=== PATIENT | female | born 1930 | race Caucasian/White ===

== ENCOUNTER → 2016-08-22 | Outpatient (CLI) | payer OTHER, BC ==
[~2016-08-22] MED LIST: ACET-1256 PO; ALPR0.25 PO; AMOX250C3 PO; ASPI81TA28 PO; B-COTAB18 PO; CALC-393 PO; CALCTAB5 PO; CHOL1000 PO; CIPR-255 PO; CLON0.1T12 PO; CYAN100T PO; FISHOIL PO; MULT-190 PO; MULT-580 PO; MULT60CA PO; OMEG10007 PO; PHEN-876 PO; POTA99TA PO; SENN1TAB65 PO; TRIA37.5 PO; VERA180T15 PO; VERA1TAB53 PO; XNX25 PO; ZNTT/150 PO
[2016-08-22 18:04] LABS: URINE APPEARANCE CLEAR (CLEAR); URINE BILIRUBIN NEG (NEG); URINE COLOR DK YELLOW; URINE EPITHELIAL CELL AUTO 20-30 /lpf (0-5); URINE NITRITE NEG (NEG); URINE SPECIFIC GRAVITY 1.016 (1.000-1.030); UROBILINOGEN NEG (NEG); ZZUR CULT IF INDIC CLEAN CATCH NO
[2016-08-22 18:07] LABS: BLOOD UREA NITROGEN 15 mg/dl (7-18); BUN/CREATININE RATIO 20.4 (10-20); CALCIUM 9.2 mg/dl (8.5-10.1); CARBON DIOXIDE 26 mmol/L (21-32); CHLORIDE 92 mmol/L (98-107); CREATININE 0.72 mg/dl (0.60-1.20); GLUCOSE 103 mg/dl (70-99); POTASSIUM 3.7 mmol/L (3.5-5.1); SODIUM 132 mmol/L (136-145)
[2016-08-22 18:20] LABS: MANUAL MICROSCOPIC REQUIRED? NO; REVIEW REQ? NO
== END | disposition home or self-care (01) ==
LOC: C.LABPBG 14:32
PROVIDERS: ATTEND Internal Medicine Geriatric Medicine
DX: I10 Essential (primary) hypertension (principal); R39.9 Unspecified symptoms and signs involving the genitourinary system

== ENCOUNTER → 2016-10-06 | Outpatient (CLI) | payer OTHER, BC ==
[2016-10-06 12:08] LABS: URINE APPEARANCE CLEAR (CLEAR); URINE BILIRUBIN NEG (NEG); URINE COLOR YELLOW; URINE EPITHELIAL CELL AUTO 0-5 /lpf (0-5); URINE NITRITE NEG (NEG); URINE SPECIFIC GRAVITY 1.006 (1.000-1.030); UROBILINOGEN NEG (NEG)
[2016-10-06 12:40] LABS: MANUAL MICROSCOPIC REQUIRED? NO; REVIEW REQ? NO; SULFASALICYLIC ACID POS (NEG)
== END | disposition home or self-care (01) ==
LOC: C.LABPBG 09:27
PROVIDERS: ATTEND Internal Medicine Geriatric Medicine
DX: R39.9 Unspecified symptoms and signs involving the genitourinary system (principal)

== ENCOUNTER 2016-10-08 10:57 | Emergency (ER) | payer OTHER, BC ==
[~2016-10-08] VITALS: Ht 162.6 cm; Wt 75.5 kg
[~2016-10-08 10:57] MED LIST changes: -ALPR0.25 PO; -AMOX250C3 PO; -CALC-393 PO; -CIPR-255 PO; -CLON0.1T12 PO; -MULT-190 PO; -OMEG10007 PO; -PHEN-876 PO; -POTA99TA PO; -SENN1TAB65 PO; -VERA1TAB53 PO; -ZNTT/150 PO
[2016-10-08 11:04] VITALS: TEMP 36.7; Ht 162.6 cm; Wt 75.5 kg
[2016-10-08] MEDS ORDERED: VERA1TAB53 PO (11:36)
[2016-10-08] MEDS ORDERED: CALC-393 PO (11:36)
[2016-10-08] MEDS ORDERED: ALPR0.25 PO (11:36)
[2016-10-08] MEDS ORDERED: POTA99TA PO (11:36)
[2016-10-08] MEDS ORDERED: AMOX250C3 PO (11:36)
[2016-10-08] MEDS ORDERED: OMEG10007 PO (11:36)
[2016-10-08 11:57] LABS: URINE APPEARANCE CLEAR (CLEAR); URINE BILIRUBIN NEG (NEG); URINE COLOR YELLOW; URINE NITRITE NEG (NEG); URINE PH >= 9.0 (4.5-7.5); URINE SPECIFIC GRAVITY 1.011 (1.000-1.030); UROBILINOGEN NEG (NEG); ZZUR CULT IF INDIC CLEAN CATCH NO
[2016-10-08 11:58] LABS: MANUAL MICROSCOPIC REQUIRED? NO; REVIEW REQ? NO
[2016-10-08 12:00] LABS: SULFASALICYLIC ACID POS (NEG)
--- NOTE | 2016-10-08 12:19 | EMERGENCY ROOM VISIT NOTE ---
History Report prepared by Delmy: Garrett Brambila Under the Supervision of: Dr. Jeramie Alejandre M.D. First contact with patient: 11:57 Chief Complaint: URINARY SYMPTOMS Stated Complaint: BLADDER Nursing Triage Summary: Pt c/o trouble urinating x 1 week. History of Present Illness The patient is a 86 year old female who presents to the Emergency Room with complaints of a urinary infection that began 7 days ago. She began having urinary pain and pressure 7 days ago. Five days ago, she went to see her PCP, and she was told that she either had a bladder infection or a UTI. She was given Amoxicillin to take for the next couple days. She took two days worth and began to experience constipation. She then remembered that she has had this issue taking this medication in the past. She did not take it the third day, but she began to experience her urinary symptoms again the next day. She then began taking the medication again, but she notes that her symptoms have persisted. She is experiencing urinary "spasms". She notes that she moved her bowels this morning. She takes a stool softener frequently since last year. She does not feel distended. Source of History: patient Onset: 5 days ago Position: other () Symptom Intensity: moderate Quality: pressure Timing: other (persistent) Associated Symptoms: + urinary symptoms Note: She denies any constipation at this time due to her bowel movement this morning. Review of Systems See HPI for pertinent positives & negatives. A total of 10 systems reviewed and were otherwise negative. Past Medical & Surgical Medical Problems: (1) Anxiety (2) Hypertension (3) Ulcer Surgical Problems: (1) S/P partial hysterectomy Family History FH: gallbladder disease Hypertension Social History Smoking Status: Never Smoker Smokeless Tobacco Use: No Alcohol Use: none Drug Use: none Marital Status: Housing Status: lives with family Occupation Status: retired Current/Historical Medications Scheduled Amoxicillin (Amoxil), 250 MG PO TID Aspirin (Aspirin Ec), 81 MG PO HS B-Complex Vitamins (Vitamin B Complex), 1 TAB PO DAILY Calcium Carbonate (Calcium), 600 MG PO DAILY Cholecalciferol (Vitamin D3), 1,000 UNITS PO DAILY Ciprofloxacin Hcl (Cipro), 500 MG PO BID Cyanocobalamin (Vitamin B-12), 100 MCG PO DAILY Fish Oil ([place]-3), 1 CAP PO DAILY Multiple Vitamins W/ Minerals (Hair/Skin/Nails), 1 TAB PO DAILY Multiple Vitamins W/ Minerals (Preservision Areds 2), 1 CAP PO BID Potassium (Potassium), 99 MG PO UD Triamterene/Hctz (Dyazide 37.5MG/25MG), 1 TAB PO DAILY Verapamil Hcl (Verapamil Hcl Er), 180 MG PO BID Scheduled PRN Acetaminophen (Tylenol), 1,000 MG PO TID PRN for Pain Alprazolam (Xanax), 0.25 MG PO TID PRN for Anxiety/Agitation Phenazopyridine HCl (Pyridium), 200 MG PO TID PRN for Frequency/Burning w/ Urination Allergies Coded Allergies: CI Pigment Blue 63 (Verified Allergy, Unknown, UNKNOWN, 10/08/16) Codeine (Verified Allergy, Unknown, 10/08/16) Escitalopram (Verified Allergy, Unknown, ., 10/08/16) Meperidine (Verified Allergy, Unknown, 10/08/16) Nebivolol (Verified Allergy, Unknown, UNKNOWN, 10/08/16) Ramipril (Verified Allergy, Unknown, UNKNOWN, 10/08/16) Sorbitan (Verified Allergy, Unknown, UNKNOWN, 10/08/16) Sulfa Drugs (Verified Allergy, Unknown, 10/08/16) Yellow Dye (Verified Allergy, Unknown, UNKNOWN, 10/08/16) Clonidine (Verified Adverse Reaction, Unknown, UNKNOWN, 10/08/16) PT Morphine (Verified Adverse Reaction, Unknown, NEVER HAD, BUT "I NEVER WANT IT", 10/08/16) Sertraline (Unverified Adverse Reaction, Unknown, HYPERTENSION, 10/08/16) Venlafaxine (Unverified Adverse Reaction, Unknown, CAUSES CONSTIPATION, ) Physical Exam Vital Signs Date Time Temp Pulse Resp B/P Pulse Ox O2 Delivery O2 Flow Rate FiO2 10/08/16 13:10 80 18 224/98 97 Room Air 10/08/16 11:04 36.7 85 18 231/97 92 Room Air Physical Exam GENERAL: Patient is in no acute distress. HEENT: No acute trauma, normocephalic atraumatic, mucous membranes moist, no nasal congestion, no scleral icterus. NECK: No stridor, no adenopathy, no meningismus, trachea is midline. LUNGS: Clear to auscultation bilaterally, no wheeze, no rhonchi, breath sounds equal. HEART: Without murmurs gallops or rubs, regular rate and rhythm. CHEST: Normal appearing breast bilaterally, no infections, no masses found. ABDOMEN: Soft, nontender, bowel sounds positive, no hernias, no peritonitis. No obvious bladder distention. EXTREMITIES: No cyanosis or edema, full range of motion of all the joints without pain or difficulty, no signs for acute trauma. NEUROLOGIC: Oriented x 3, no acute motor or sensory deficits, no focal weakness. SKIN: No rash, no jaundice, no diaphoresis. Medical Decision & Procedures ER Provider Diagnostic Interpretation: Bladder Scan Post void analysis showed 32 cc's, no significant retention. Laboratory Results Test 10/08/16 11:40 Urine Color YELLOW Urine Appearance CLEAR (CLEAR) Urine pH >= 9.0 (4.5-7.5) Urine Specific [place] 1.011 (1.000-1.030) Urine Protein 2+ (NEG) Urine Glucose (UA) NEG (NEG) Urine Ketones NEG (NEG) Urine Occult Blood NEG (NEG) Urine Nitrite NEG (NEG) Urine Bilirubin NEG (NEG) Urine Urobilinogen NEG (NEG) Urine Leukocyte Esterase NEG (NEG) Urine WBC (Auto) 1-5 /hpf (0-5) Urine RBC (Auto) 0-4 /hpf (0-4) Urine Hyaline Casts (Auto) 0 /lpf (0-5) Urine Epithelial Cells (Auto) 5-10 /lpf (0-5) Urine Bacteria (Auto) NEG (NEG) Laboratory results reviewed by me. Medications Administered Medications (Trade) Dose Ordered Sig/Cristhian Route Start Time Stop Time Status Last Admin Dose Admin Ciprofloxacin (Cipro Tab) 500 mg NOW STAT PO 10/08/16 12:52 10/08/16 12:54 DC 10/08/16 13:08 500 MG ED Course 1157: The patient was evaluated in room A3. A complete history and physical exam was performed. 1252: Ordered Cipro Tab 500 mg PO 1320: Reevaluated the patient. Discussed results and discharge instructions: She verbalized understanding and agreement. The patient is ready for discharge. Medical Decision Differential diagnosis includes but is not limited to urinary retention, bladder spasm, UTI, and partially treated UTI. The patient presents with urinary symptoms. She has been intermittently taking amoxicillin as she does not tolerate the medication well. Urinalysis here is not consistent with infection per se but she is partially treated. Urine culture is pending. Bladder scan did not show significant urinary retention. The patient was not febrile or toxic. The patient was given oral Cipro and will be on this twice before 5 days. She apparently has done well with this medication in the past. I will give some Pyridium for bladder irritation. The patient was encouraged to return for worsening symptoms. Impression Primary Impression: Dysuria Scribe Attestation The scribe's documentation has been prepared under my direction and personally reviewed by me in its entirety. I confirm that the note above accurately reflects all work, treatment, procedures, and medical decision making performed by me. Departure Information Dispostion Home / Self-Care Prescriptions Phenazopyridine HCl (Pyridium) 200 Mg Tab 200 MG PO TID Y for Frequency/Burning w/Urination, #6 TAB Prov: Jeramie Alejandre M.D. 10/08/16 Ciprofloxacin Hcl (CIPRO) 500 Mg Tab 500 MG PO BID for 5 Days, #10 TAB Prov: Jeramie Alejandre M.D. 10/08/16 Referrals Dieudonne Saba M.D. (PCP) Forms HOME CARE DOCUMENTATION FORM, IMPORTANT VISIT INFORMATION Patient Instructions My [facility] [employer] Additional Instructions pyridium 3x per day for dysuria cipro 2x per day for 5 days stay well hydrated see your doctor as scheduled--have your blood pressure checked, it was higher here return for fever or worsening symptoms
[2016-10-08] MEDS ORDERED: CIPROFLOXACIN 500 MG TAB PO STA (12:52)
[2016-10-08 13:10] VITALS: BP 224/98; PULSE 80; O2SAT 97
[2016-10-08] MEDS ORDERED: CIPR-255 PO (13:20)
[2016-10-08] MEDS ORDERED: PHEN-876 PO (13:20)
== END 2016-10-08 13:25 | disposition home or self-care (01) ==
LOC: C.EDB 10:57 → C.EDA 13:25
DX: R30.0 Dysuria (principal); F41.9 Anxiety disorder, unspecified; I10 Essential (primary) hypertension; Z79.82 Long term (current) use of aspirin; Z82.49 Family history of ischemic heart disease and other diseases of the circulatory system

== ENCOUNTER 2016-10-13 11:38 | Emergency (ER) | payer OTHER, BC ==
[~2016-10-13] VITALS: Ht 162.6 cm; Wt 75.1 kg
[~2016-10-13 11:38] MED LIST changes: +ALPR0.25 PO; +AMOX250C3 PO; +CALC-393 PO; -CALCTAB5 PO; +CIPR-255 PO; -FISHOIL PO; +OMEG10007 PO; +PHEN-876 PO; +POTA99TA PO; -VERA180T15 PO; +VERA1TAB53 PO; -XNX25 PO
[2016-10-13 11:41] VITALS: TEMP 36.4; Ht 162.6 cm; Wt 75.1 kg
--- NOTE | 2016-10-13 12:44 | EMERGENCY ROOM VISIT NOTE ---
History Report prepared by Delmy: Mitul Morgan Under the Supervision of: Dr. Elizabeth Hagan D.O. First contact with patient: 12:24 Chief Complaint: OTHER COMPLAINT Stated Complaint: BLADDER TROUBLE - WAS HERE SUNDAY History of Present Illness The patient is an 86 year old female who presents to the Emergency Room with complaints of worsening constipation over the past week. The patient had a UTI a while back, and her primary care physician started the patient on Amoxicillin , which gave her constipation. She then came here 5 days ago due to the constipation. The patient says that the Cipro did not help, and made her sick and more constipated. She then saw her primary care physician 3 days ago, and her Cipro was stopped, and she was put on Pyridium. The patient states that her last bowel movement was yesterday, and she had multiple incomplete movements. She states that she has had pelvic pain due to the constipation, and the bowel movement relieves her pain a bit. However, her bowel movements were not complete and did not feel full. She states that she had bad pelvic pain this morning, which woke her up. The patient states that she has had constipation issues for a while off and on, and has been upping her dose of OTC constipation medication recently, which has been helping a bit. The patient notes that she has been eating more prunes recently as well, which always helps her constipation. She denies any back pain, nausea, vomiting, fevers, chills, chest pain, shortness of breath, or leg swelling. She notes that she has not had a UTI in a while, and her urine is currently fine. She has not had a hard time urinating or emptying her bladder. The patient has not tried any enemas for her constipation. She has a sonogram scheduled for 3 days from now, and is scheduled for a colonoscopy as well. Her last colonoscopy was quite a while ago. She notes that she has had some stress recently due to concerns over having to go to assisted living. She says that this stress is somewhat a cause of her problems. She has no history of kidney infections. Source of History: patient Onset: Over past week Position: other (global - constipation) Symptom Intensity: last BM yesterday, was not complete Timing: worsening Associated Symptoms: No SOB, No back pain, No chest pain, No chills, No fevers, No vomiting Note: Associated symptoms: Patient notes urine is fine currently. Has been having intermittent pelvic pain. States has been stressed recently. Denies leg swelling. Review of Systems See HPI for pertinent positives & negatives. A total of 10 systems reviewed and were otherwise negative. Past Medical & Surgical Medical Problems: (1) Anxiety (2) Hypertension (3) Ulcer Surgical Problems: (1) S/P partial hysterectomy Family History FH: gallbladder disease Hypertension Social History Smoking Status: Never Smoker Alcohol Use: none Drug Use: none Marital Status: Housing Status: lives with family Occupation Status: retired Current/Historical Medications Scheduled Aspirin (Aspirin Ec), 81 MG PO HS B-Complex Vitamins (Vitamin B Complex), 1 TAB PO DAILY Calcium Carbonate (Calcium), 600 MG PO DAILY Cholecalciferol (Vitamin D3), 1,000 UNITS PO DAILY Clonidine Hcl (Catapres), 1 TAB PO HS Cyanocobalamin (Vitamin B-12), 100 MCG PO DAILY Fish Oil ([place]-3), 2 CAP PO DAILY Multiple Vitamins W/ Minerals (Hair/Skin/Nails), 1 TAB PO DAILY Ocuvite Preservision (Ocuvite Preservision), 1 TAB PO BID Potassium (Potassium), 99 MG PO UD Ranitidine (Zantac), 150 MG PO BID Sennosides-Docusate Sodium (Senna Plus), 1 TAB PO BID Triamterene/Hctz (Dyazide 37.5MG/25MG), 1 TAB PO DAILY Verapamil Hcl (Verapamil Hcl Er), 180 MG PO DAILY Scheduled PRN Acetaminophen (Tylenol), 1,000 MG PO TID PRN for Pain Alprazolam (Xanax), 0.25 MG PO TID PRN for Anxiety/Agitation Allergies Coded Allergies: CI Pigment Blue 63 (Verified Allergy, Unknown, UNKNOWN, 10/08/16) Codeine (Verified Allergy, Unknown, 10/13/16) Escitalopram (Verified Allergy, Unknown, ., 10/13/16) Meperidine (Verified Allergy, Unknown, 10/13/16) Nebivolol (Verified Allergy, Unknown, UNKNOWN, 10/08/16) Ramipril (Verified Allergy, Unknown, UNKNOWN, 10/08/16) Sorbitan (Verified Allergy, Unknown, UNKNOWN, 10/08/16) Sulfa Drugs (Verified Allergy, Unknown, 10/13/16) Yellow Dye (Verified Allergy, Unknown, UNKNOWN, 10/08/16) Ciprofloxacin (Unverified Adverse Reaction, Severe, CONSTIPATION, 10/13/16) Amoxicillin (Unverified Adverse Reaction, Intermediate, CONSTIPATION, 10/13) Clonidine (Verified Adverse Reaction, Unknown, UNKNOWN, 10/08/16) PT Morphine (Verified Adverse Reaction, Unknown, NEVER HAD, BUT "I NEVER WANT IT", 10/08/16) Sertraline (Unverified Adverse Reaction, Unknown, HYPERTENSION, 10/13/16) Venlafaxine (Unverified Adverse Reaction, Unknown, CAUSES CONSTIPATION, ) Physical Exam Vital Signs Date Time Temp Pulse Resp B/P Pulse Ox O2 Delivery O2 Flow Rate FiO2 10/13/16 15:49 67 212/114 97 10/13/16 13:48 73 19 246/110 97 10/13/16 11:41 36.4 86 20 245/92 95 Room Air Physical Exam GENERAL: alert, anxious appearing, well nourished, no distress, non-toxic EYE EXAM: normal conjunctiva, PERRL and EOM's grossly intact OROPHARYNX: no exudate, no erythema, lips, buccal mucosa, and tongue normal and mucous membranes are moist NECK: supple, no nuchal rigidity, no adenopathy, non-tender LUNGS: Clear to auscultation. Normal chest wall mechanics HEART: no murmurs, S1 normal and S2 normal ABDOMEN: abdomen soft, non-tender, normo-active bowel sounds, no masses, no rebound or guarding. BACK: Back is symmetrical on inspection and there is no deformity, no midline tenderness, no CVA tenderness. SKIN: no rashes and no bruising UPPER EXTREMITIES: upper extremities are grossly normal. LOWER EXTREMITIES: No pitting edema. NEURO EXAM: Normal sensorium, cranial nerves II-XII grossly intact, normal speech, no gross weakness of arms, no gross weakness of legs. No drift. Finger to nose intact. Gross sensation intact. Medical Decision & Procedures ER Provider Diagnostic Interpretation: Xray results per the radiologist and my interpretation. PA CHEST WITH ABDOMINAL SERIES CLINICAL HISTORY: Constipation. Generalized abdominal pain. FINDINGS: A PA chest radiograph is compared to study dated 06/27/2015. The heart is enlarged and there is atherosclerotic calcification of the thoracic aorta. The pulmonary vasculature is noncongested. Chronic interstitial thickening is unchanged. The lungs and pleural spaces are clear. No pneumothorax is seen. The skeletal structures are osteopenic. Degenerative change is noted throughout the thoracic spine. Supine and erect abdominal radiographs are compared to study dated 06/27/2015 and correlated with abdominal CT dated 10/27/2014. There is a nonobstructed abdominal bowel gas pattern. Moderate to severe constipation is observed. No intraperitoneal free air is seen. There are numerous pelvic phleboliths. Mild lumbosacral spondylosis is observed. The bony pelvis appears intact. IMPRESSION: 1. Cardiomegaly with no acute cardiopulmonary abnormality. 2. Moderate to severe constipation. Electronically signed by: Jeramie Corona M.D. 10/13/2016 1:15 PM Dictated Date/Time: 10/13/2016 1:14 PM Laboratory Results 10/13/16 12:52 Red Blood Count 4.65, Mean Corpuscular Volume 86.7, Mean Corpuscular Hemoglobin 31.2, Mean Corpuscular Hemoglobin Concent 36.0, Mean Platelet Volume 9.4, Neutrophils (%) (Auto) 55.0, Lymphocytes (%) (Auto) 35.9, Monocytes (%) (Auto) 8.2, Eosinophils (%) (Auto) 0.3, Basophils (%) (Auto) 0.3, Neutrophils # (Auto) 3.76, Lymphocytes # (Auto) 2.45, Monocytes # (Auto) 0.56, Eosinophils # (Auto) 0.02, Basophils # (Auto) 0.02 10/13/16 12:52 Test 10/13/16 12:02 10/13/16 12:52 Urine Color YELLOW Urine Appearance CLEAR (CLEAR) Urine pH 8.0 (4.5-7.5) Urine Specific [place] 1.008 (1.000-1.030) Urine Protein 1+ (NEG) Urine Glucose (UA) NEG (NEG) Urine Ketones NEG (NEG) Urine Occult Blood NEG (NEG) Urine Nitrite NEG (NEG) Urine Bilirubin NEG (NEG) Urine Urobilinogen NEG (NEG) Urine Leukocyte Esterase NEG (NEG) Urine WBC (Auto) 0 /hpf (0-5) Urine RBC (Auto) 0-4 /hpf (0-4) Urine Hyaline Casts (Auto) 0 /lpf (0-5) Urine Epithelial Cells (Auto) 0-5 /lpf (0-5) Urine Bacteria (Auto) NEG (NEG) White Blood Count 6.83 K/uL (4.8-10.8) Red Blood Count 4.65 M/uL (4.2-5.4) Hemoglobin 14.5 g/dL (12.0-16.0) Hematocrit 40.3 % (37-47) Mean Corpuscular Volume 86.7 fL (80-100) Mean Corpuscular Hemoglobin 31.2 pg (25-34) Mean Corpuscular Hemoglobin Concent 36.0 g/dl (32-36) Platelet Count 247 K/uL (130-400) Mean Platelet Volume 9.4 fL (7.4-10.4) Neutrophils (%) (Auto) 55.0 % Lymphocytes (%) (Auto) 35.9 % Monocytes (%) (Auto) 8.2 % Eosinophils (%) (Auto) 0.3 % Basophils (%) (Auto) 0.3 % Neutrophils # (Auto) 3.76 K/uL (1.4-6.5) Lymphocytes # (Auto) 2.45 K/uL (1.2-3.4) Monocytes # (Auto) 0.56 K/uL (0.11-0.59) Eosinophils # (Auto) 0.02 K/uL (0-0.5) Basophils # (Auto) 0.02 K/uL (0-0.2) RDW Standard Deviation 37.6 fL (36.4-46.3) RDW Coefficient of Variation 11.9 % (11.5-14.5) Immature Granulocyte % (Auto) 0.3 % Immature Granulocyte # (Auto) 0.02 K/uL (0.00-0.02) Anion Gap 5.0 mmol/L (3-11) Est Creatinine Clear Calc Drug Dose 63.5 ml/min Estimated GFR () 94.0 Estimated GFR (Non- 81.1 BUN/Creatinine Ratio 18.6 (10-20) Calcium Level 9.2 mg/dl (8.5-10.1) Total Bilirubin 0.5 mg/dl (0.2-1) Aspartate Amino Transf (AST/SGOT) 20 U/L (15-37) Alanine Aminotransferase (ALT/SGPT) 30 U/L (12-78) Alkaline Phosphatase 61 U/L (45-117) Total Protein 9.1 gm/dl (6.4-8.2) Albumin 4.3 gm/dl (3.4-5.0) Globulin 4.8 gm/dl (2.5-4.0) Albumin/Globulin Ratio 0.9 (0.9-2) Laboratory results per my review. Medications Administered Medications (Trade) Dose Ordered Sig/Cristhian Route Start Time Stop Time Status Last Admin Dose Admin Miscellaneous Medication (Milk And Molasses Enema) 1 ea ONE STAT NM 10/13/16 13:27 10/13/16 13:28 DC 10/13/16 13:27 1 EA ED Course 1226: The patient was evaluated in room C12B. A complete history and physical exam was performed. 1327: Ordered Milk and Molasses Enema 1 ea NM. 1526: Upon reevaluation, the patient is feeling better. I discussed the findings and the treatment plan with the patient. She verbalizes agreement and understanding. She was discharged home. Medical Decision Differential diagnoses includes but is not limited to gastritis, peptic ulcer disease, GERD, gallbladder disease, pancreatitis, small bowel obstruction, acute coronary syndrome, pericarditis, ischemic bowel, irritable bowel disease, irritable bowel syndrome, appendicitis, diverticulitis, malignancy, hernia, urinary tract infection, torsion, perforation, trauma, infectious. No evidence of persistent UTI or failed outpatient treatment, no evidence of pyelonephritis or kidney stone. Patient's history, exam, and x-ray consistent with constipation and patient felt markedly improved following an enema. No evidence to suggest bacteremia/sepsis. Evidently low suspicion for mesenteric ischemia, volvulus, bowel obstruction, colitis, perforation. Patient's vital signs stable. Patient with anxiety over her condition but relieved that her symptoms were improved following passage of stool following enema. Discussed with patient diet and prevention of constipation, follow-up with family doctor as a precaution, symptoms to watch and return for, she verbalized understanding was agreeable with plan. Impression Primary Impression: Constipation Additional Impressions: Anxiety Lower abdominal pain Scribe Attestation The scribe's documentation has been prepared under my direction and personally reviewed by me in its entirety. I confirm that the note above accurately reflects all work, treatment, procedures, and medical decision making performed by me. Departure Information Dispostion Home / Self-Care Referrals No Doctor, Assigned (PCP) Patient Instructions My [facility] Additional Instructions Please continue regular medications as prescribed. Please continue to eat a high-fiber diet and drink plenty of water to help prevent any additional constipation. If you have any recurrent or worsening lower abdominal pain, develop fevers, vomiting, noticed blood with the bowel movement, or any other new concerns, please return to emergency room. Please call and follow-up the family doctor as a precaution. Problem Qualifiers Primary Impression: Constipation Constipation type: unspecified constipation type Qualified Codes: K59.00 - Constipation, unspecified
[2016-10-13 13:13] LABS: URINE APPEARANCE CLEAR (CLEAR); URINE BILIRUBIN NEG (NEG); URINE COLOR YELLOW; URINE EPITHELIAL CELL AUTO 0-5 /lpf (0-5); URINE NITRITE NEG (NEG); URINE SPECIFIC GRAVITY 1.008 (1.000-1.030); UROBILINOGEN NEG (NEG); ZZUR CULT IF INDIC CLEAN CATCH NO
[2016-10-13 13:14] LABS: BASO % 0.3 %; BASO ABS # 0.02 K/uL (0-0.2); COMPLETE YES; EOS % 0.3 %; HEMATOCRIT 40.3 % (37-47); IG% 0.3 %; LYMPH % 35.9 %; LYMPH ABS # 2.45 K/uL (1.2-3.4); MEAN CELL VOLUME 86.7 fL (80-100); MEAN CORPUSCULAR HEMOGLOBIN 31.2 pg (25-34); MEAN PLATELET VOLUME 9.4 fL (7.4-10.4); MONO % 8.2 %; PLATELET COUNT 247 K/uL (130-400); RED BLOOD COUNT 4.65 M/uL (4.2-5.4); WHITE BLOOD COUNT 6.83 K/uL (4.8-10.8)
[2016-10-13 13:15] LABS: MANUAL MICROSCOPIC REQUIRED? NO; REVIEW REQ? NO; SULFASALICYLIC ACID POS (NEG)
--- NOTE | 2016-10-13 13:16 | DIAGNOSTIC IMAGING REPORT ---
PA CHEST WITH ABDOMINAL SERIES CLINICAL HISTORY: Constipation. Generalized abdominal pain. FINDINGS: A PA chest radiograph is compared to study dated 06/27/2015. The heart is enlarged and there is atherosclerotic calcification of the thoracic aorta. The pulmonary vasculature is noncongested. Chronic interstitial thickening is unchanged. The lungs and pleural spaces are clear. No pneumothorax is seen. The skeletal structures are osteopenic. Degenerative change is noted throughout the thoracic spine. Supine and erect abdominal radiographs are compared to study dated 06/27/2015 and correlated with abdominal CT dated 10/27/2014. There is a nonobstructed abdominal bowel gas pattern. Moderate to severe constipation is observed. No intraperitoneal free air is seen. There are numerous pelvic phleboliths. Mild lumbosacral spondylosis is observed. The bony pelvis appears intact. IMPRESSION: 1. Cardiomegaly with no acute cardiopulmonary abnormality. 2. Moderate to severe constipation. Electronically signed by: Jeramie Corona M.D. 10/13/2016 1:15 PM Dictated Date/Time: 10/13/2016 1:14 PM
[2016-10-13] MEDS ORDERED: MILK AND MOLASSES ENEMA PR STA (13:27)
[2016-10-13 13:30] LABS: BUN/CREATININE RATIO 18.6 (10-20); CALCIUM 9.2 mg/dl (8.5-10.1); CREATININE 0.62 mg/dl (0.60-1.20); POTASSIUM 3.3 mmol/L (3.5-5.1)
[2016-10-13 13:33] LABS: ALB/GLOB RATIO 0.9 (0.9-2)
[2016-10-13] MEDS ORDERED: CLON0.1T12 PO (13:51)
[2016-10-13] MEDS ORDERED: MULT-190 PO (13:58)
[2016-10-13] MEDS ORDERED: ZNTT/150 PO (13:59)
[2016-10-13] MEDS ORDERED: SENN1TAB65 PO (14:00)
[2016-10-13 15:49] VITALS: BP 212/114; PULSE 67; O2SAT 97
== END 2016-10-13 15:50 | disposition home or self-care (01) ==
LOC: C.EDB 11:40 → C.EDC 15:50
DX: K59.00 Constipation, unspecified (principal); R10.30 Lower abdominal pain, unspecified; F41.9 Anxiety disorder, unspecified; I10 Essential (primary) hypertension; Z87.19 Personal history of other diseases of the digestive system; Z90.710 Acquired absence of both cervix and uterus; Z79.82 Long term (current) use of aspirin; Z79.899 Other long term (current) drug therapy; Z88.1 Allergy status to other antibiotic agents; Z88.2 Allergy status to sulfonamides; Z88.5 Allergy status to narcotic agent; Z88.8 Allergy status to other drugs, medicaments and biological substances; Z83.79 Family history of other diseases of the digestive system; Z82.49 Family history of ischemic heart disease and other diseases of the circulatory system

== ENCOUNTER 2016-10-14 08:56 | Emergency (ER) | payer OTHER, BC ==
[~2016-10-14] VITALS: Ht 162.6 cm; Wt 74.3 kg
[~2016-10-14 08:56] MED LIST changes: -AMOX250C3 PO; -CIPR-255 PO; +CLON0.1T12 PO; +MULT-190 PO; -MULT60CA PO; -PHEN-876 PO; +SENN1TAB65 PO; +ZNTT/150 PO
[2016-10-14 09:00] VITALS: TEMP 36.5; Ht 162.6 cm; Wt 74.3 kg
[2016-10-14] MEDS ORDERED: SODIUM CHLORIDE 0.9% 500ML 500 ML IV STA (09:14)
[2016-10-14] MEDS ORDERED: LORAZEPAM 2 MG/ML 1 ML VIAL IV STA ×2 (09:14→10:51)
--- NOTE | 2016-10-14 09:20 | EMERGENCY ROOM VISIT NOTE ---
History Report prepared by Delmy: Em Romero Under the Supervision of: Dr. Glenn Morrow M.D. First contact with patient: 09:07 Chief Complaint: ABDOMINAL PAIN Stated Complaint: ABD. PAIN-WORSENING Nursing Triage Summary: pt reports here 1 day ago for constipation and recieved an enema and was DC to home feeling better . then started with pressure in low abdomen with vaginal pressure last night felt a little better after urination , denies urinary sx History of Present Illness The patient is an 86 year old female who presents to the Emergency Room with complaints of intermittent vaginal pain starting last night. She was seen in the ED yesterday for constipation. She felt better after receiving an enema and having a bowel movement. She felt better until the middle of the night last night when she woke up with vaginal pain. She went to the bathroom and urinated which relieved the pain. She stayed up for about 2 more hours during which time she did not have any pain. She went back to bed, but was roused by the pain in 1 hour. The pain worsens when she is lying down. She has pain under her left arm and back. She denies any vomiting, diarrhea, or bloody stools. She is scheduled for a sonogram and colonoscopy next week. She has a history of anxiety and hypertension. Source of History: patient Onset: last night Position: other (vaginal) Quality: other (pain) Timing: intermittent Modifying Factors (Worsening): other (lying flat) Modifying Factors (Relieving): urination Associated Symptoms: + back pain Note: Pt reports pain under left arm. Review of Systems See HPI for pertinent positives & negatives. A total of 10 systems reviewed and were otherwise negative. Past Medical & Surgical Medical Problems: (1) Anxiety (2) Hypertension (3) Ulcer Surgical Problems: (1) S/P partial hysterectomy Family History FH: gallbladder disease Hypertension Social History Smoking Status: Never Smoker Alcohol Use: none Drug Use: none Marital Status: Housing Status: lives with significant other Occupation Status: retired Current/Historical Medications Scheduled Aspirin (Aspirin Ec), 81 MG PO HS B-Complex Vitamins (Vitamin B Complex), 1 TAB PO DAILY Calcium Carbonate (Calcium), 600 MG PO DAILY Cholecalciferol (Vitamin D3), 1,000 UNITS PO DAILY Clonidine Hcl (Catapres), 1 TAB PO HS Cyanocobalamin (Vitamin B-12), 100 MCG PO DAILY Fish Oil ([place]-3), 2 CAP PO DAILY Multiple Vitamins W/ Minerals (Hair/Skin/Nails), 1 TAB PO DAILY Ocuvite Preservision (Ocuvite Preservision), 1 TAB PO BID Potassium (Potassium), 99 MG PO UD Ranitidine (Zantac), 150 MG PO BID Sennosides-Docusate Sodium (Senna Plus), 1 TAB PO BID Triamterene/Hctz (Dyazide 37.5MG/25MG), 1 TAB PO DAILY Verapamil Hcl (Verapamil Hcl Er), 180 MG PO DAILY Scheduled PRN Acetaminophen (Tylenol), 1,000 MG PO TID PRN for Pain Alprazolam (Xanax), 0.25 MG PO TID PRN for Anxiety/Agitation Allergies Coded Allergies: CI Pigment Blue 63 (Verified Allergy, Unknown, UNKNOWN, 10/08/16) Codeine (Verified Allergy, Unknown, 10/13/16) Escitalopram (Verified Allergy, Unknown, ., 10/13/16) Meperidine (Verified Allergy, Unknown, 10/13/16) Nebivolol (Verified Allergy, Unknown, UNKNOWN, 10/08/16) Ramipril (Verified Allergy, Unknown, UNKNOWN, 10/08/16) Sorbitan (Verified Allergy, Unknown, UNKNOWN, 10/08/16) Sulfa Drugs (Verified Allergy, Unknown, 10/13/16) Yellow Dye (Verified Allergy, Unknown, UNKNOWN, 10/08/16) Ciprofloxacin (Unverified Adverse Reaction, Severe, CONSTIPATION, 10/13/16) Amoxicillin (Unverified Adverse Reaction, Intermediate, CONSTIPATION, 10/13) Clonidine (Verified Adverse Reaction, Unknown, UNKNOWN, 10/08/16) PT Morphine (Verified Adverse Reaction, Unknown, NEVER HAD, BUT "I NEVER WANT IT", 10/08/16) Sertraline (Unverified Adverse Reaction, Unknown, HYPERTENSION, 10/13/16) Venlafaxine (Unverified Adverse Reaction, Unknown, CAUSES CONSTIPATION, ) Physical Exam Vital Signs Date Time Temp Pulse Resp B/P Pulse Ox O2 Delivery O2 Flow Rate FiO2 10/14/16 12:04 77 14 185/70 94 10/14/16 11:41 16 197/80 10/14/16 11:35 76 16 196/78 99 Room Air 10/14/16 11:27 78 16 211/100 98 Room Air 10/14/16 10:55 83 15 199/98 96 Room Air 10/14/16 09:00 36.5 93 18 229/99 98 Room Air Physical Exam GENERAL: Patient is anxious appearing and in no acute distress. HEENT: No acute trauma, normocephalic atraumatic, mucous membranes moist, no nasal congestion, no scleral icterus. NECK: No stridor, no adenopathy, no meningismus, trachea is midline. LUNGS: No dyspnea. Clear to auscultation and equal bilaterally. No wheeze, no rhonchi. HEART: Regular rate and rhythm. No murmurs, rubs, gallops appreciated. ABDOMEN: Soft, nontender, bowel sounds positive, no masses appreciated, no peritonitis. BACK: No midline tenderness, no CVA tenderness EXTREMITIES: Normal motion all extremities, no cyanosis, no edema. NEUROLOGIC: Alert and oriented, no acute motor or sensory deficits, no focal weakness, cranial nerves grossly intact. SKIN: No rash, no jaundice, no diaphoresis. Medical Decision & Procedures ER Provider Diagnostic Interpretation: Radiology results and stated below per my review and radiologist interpretation: ABDOMEN AND PELVIS CT WITH IV CONTRAST CT DOSE: 583.49 mGy.cm HISTORY: diffuse lower abdominal pain, worsening over 2 weeks TECHNIQUE: Multiaxial CT images of the abdomen and pelvis were performed following the use of intravenous contrast. COMPARISON STUDY: Abdomen and pelvis CT 10/27/2014. FINDINGS: The lung bases are essentially clear. Tiny fat-containing umbilical hernia. The liver, gallbladder, pancreas, spleen, and adrenal glands are unremarkable. Bilateral renal hypodense lesions are not significantly changed. These favor cysts. Mild fullness within the bilateral renal collecting systems without samara hydronephrosis. This is also similar to the prior study. No retroperitoneal lymphadenopathy. The bladder is moderately distended. The uterus is surgically absent. No pelvic free fluid. No bowel wall thickening or obstruction. Colonic diverticulosis. Questionable thickening at the descending colon is likely due to underdistention. This is similar to the prior study. No pericolonic inflammatory change to suggest an acute process. IMPRESSION: 1. No significant change compared to the prior study. 2. No definite bowel wall thickening or obstruction. 3. Colonic diverticulosis. 4. Normal appendix. 5. Fullness within the bilateral renal collecting systems is likely due to the moderately distended bladder. No hydronephrosis or renal stones. Electronically signed by: Saul Teixeira M.D. 10/14/2016 10:36 AM Dictated Date/Time: 10/14/2016 10:28 AM Laboratory Results 10/14/16 09:30 Red Blood Count 4.50, Mean Corpuscular Volume 86.0, Mean Corpuscular Hemoglobin 31.3, Mean Corpuscular Hemoglobin Concent 36.4, Mean Platelet Volume 9.1, Neutrophils (%) (Auto) 61.8, Lymphocytes (%) (Auto) 29.2, Monocytes (%) (Auto) 8.2, Eosinophils (%) (Auto) 0.5, Basophils (%) (Auto) 0.2, Neutrophils # (Auto) 5.00, Lymphocytes # (Auto) 2.36, Monocytes # (Auto) 0.66, Eosinophils # (Auto) 0.04, Basophils # (Auto) 0.02 10/14/16 09:30 Test 10/14/16 09:30 White Blood Count 8.09 K/uL (4.8-10.8) Red Blood Count 4.50 M/uL (4.2-5.4) Hemoglobin 14.1 g/dL (12.0-16.0) Hematocrit 38.7 % (37-47) Mean Corpuscular Volume 86.0 fL (80-100) Mean Corpuscular Hemoglobin 31.3 pg (25-34) Mean Corpuscular Hemoglobin Concent 36.4 g/dl (32-36) Platelet Count 252 K/uL (130-400) Mean Platelet Volume 9.1 fL (7.4-10.4) Neutrophils (%) (Auto) 61.8 % Lymphocytes (%) (Auto) 29.2 % Monocytes (%) (Auto) 8.2 % Eosinophils (%) (Auto) 0.5 % Basophils (%) (Auto) 0.2 % Neutrophils # (Auto) 5.00 K/uL (1.4-6.5) Lymphocytes # (Auto) 2.36 K/uL (1.2-3.4) Monocytes # (Auto) 0.66 K/uL (0.11-0.59) Eosinophils # (Auto) 0.04 K/uL (0-0.5) Basophils # (Auto) 0.02 K/uL (0-0.2) RDW Standard Deviation 36.7 fL (36.4-46.3) RDW Coefficient of Variation 11.7 % (11.5-14.5) Immature Granulocyte % (Auto) 0.1 % Immature Granulocyte # (Auto) 0.01 K/uL (0.00-0.02) Urine Color YELLOW Urine Appearance CLEAR (CLEAR) Urine pH 8.0 (4.5-7.5) Urine Specific [place] 1.007 (1.000-1.030) Urine Protein 2+ (NEG) Urine Glucose (UA) NEG (NEG) Urine Ketones NEG (NEG) Urine Occult Blood NEG (NEG) Urine Nitrite NEG (NEG) Urine Bilirubin NEG (NEG) Urine Urobilinogen NEG (NEG) Urine Leukocyte Esterase NEG (NEG) Urine WBC (Auto) 0 /hpf (0-5) Urine RBC (Auto) 0-4 /hpf (0-4) Urine Hyaline Casts (Auto) 0 /lpf (0-5) Urine Epithelial Cells (Auto) 0-5 /lpf (0-5) Urine Bacteria (Auto) NEG (NEG) Anion Gap 9.0 mmol/L (3-11) Est Creatinine Clear Calc Drug Dose 60.2 ml/min Estimated GFR () 92.5 Estimated GFR (Non- 79.8 BUN/Creatinine Ratio 20.5 (10-20) Calcium Level 9.1 mg/dl (8.5-10.1) Magnesium Level 2.3 mg/dl (1.8-2.4) Total Bilirubin 0.7 mg/dl (0.2-1) Direct Bilirubin 0.2 mg/dl (0-0.2) Aspartate Amino Transf (AST/SGOT) 24 U/L (15-37) Alanine Aminotransferase (ALT/SGPT) 29 U/L (12-78) Alkaline Phosphatase 60 U/L (45-117) Total Protein 9.0 gm/dl (6.4-8.2) Albumin 4.3 gm/dl (3.4-5.0) Lipase 237 U/L (73-393) Laboratory results as reviewed by me. Medications Administered Medications (Trade) Dose Ordered Sig/Cristhian Route Start Time Stop Time Status Last Admin Dose Admin Lorazepam 0.5 mg 0.5 mg NOW STAT IV 10/14/16 09:14 10/14/16 09:15 DC 10/14/16 09:50 0.5 MG Sodium Chloride (Nss 500ml) 500 ml @ 999 mls/hr Q31M STAT IV 10/14/16 09:14 10/14/16 09:44 DC 10/14/16 09:51 999 MLS/HR Hydralazine HCl (HydrALAZINE INJ) 5 mg NOW STAT IV. 10/14/16 10:51 10/14/16 10:53 DC 10/14/16 11:31 5 MG Lorazepam (Ativan Inj) 0.5 mg NOW STAT IV 10/14/16 10:51 10/14/16 10:53 DC 10/14/16 11:31 0.5 MG ED Course 0908: The patient was evaluated in room B3B. A complete history and physical exam was performed. 0914: NSS 500 ml @ 999 mls/hr IV, Lorazepam 0.5 mg IV. 1044: I reevaluated the patient. She feels fine. Her systolic blood pressure is 200. 1051: Lorazepam 0.5 mg IV, Hydralazine HCl 5 mg IV. 1120: I reevaluated the patient. She is feeling fine. She is waiting for ultrasound for a bladder scan. 1145: I reevaluated the patient. She is resting comfortably. I discussed results and the treatment plan. She verbalized understanding and agreement. I offered admission multiple times, but she states she would like to go home. The patient is ready for discharge. Medical Decision Differential: Appendicitis, Diverticulitis, PUD/Gastritis, Biliary Pathology, UTI, Pyelonephritis, Renal Colic, Bowel Obstruction, Aortic Pathology, Acute Coronary Syndrome, amongst other pathologies entertained. Pleasant, yet very anxious, 86 yr old female arrives with bilateral lower abdominal/pelvic cramping ongoing for last week with multiple PCP/ER visits for same. Treated for UTI, constipation already each time resolving then returning. Notes discomfort overnight. Symptoms resolve with ativan. Quite hypertensive though she makes clear this is not unusual for her, especially in ED setting as she gets very worked up. Also admits severe stress with her calling her continuously while he is in rehab hospital. Large work-up, including CT abdo/pelv. Mild hypoNa noted from last few days. She is feeling fine without further complaints. I discussed my concern that this is 3rd ed visit, has already seen PCP, and continues to have symptoms. This along with hypoNa I advised brining in to hospital to further investigate symptoms which she refuses. Patient states she will be going home. Aware she can return at any time for further evaluation/treatment. Impression Primary Impression: Lower abdominal pain Additional Impressions: Hypertension Hyponatremia Scribe Attestation The scribe's documentation has been prepared under my direction and personally reviewed by me in its entirety. I confirm that the note above accurately reflects all work, treatment, procedures, and medical decision making performed by me. Departure Information Dispostion Home / Self-Care Referrals Samara Saba M.D. (PCP) Patient Instructions My [facility] Additional Instructions You have been examined and treated today on an emergency basis only. This is not a substitute for, or an effort to provide, complete comprehensive medical care. It is impossible to recognize and treat all injuries or illnesses in a single emergency department visit. It is therefore important that you follow up closely with your Primary Physician or [facility]. Call as soon as possible for an appointment so you can review all labs, imaging and other testing that you had. Return to Emergency Department, call 911 or seek immediate medical attention if you feel your symptoms are worsening. It is unclear the cause of your symptoms. We discussed monitoring you in the hospital for further work-up and evaluation of this, along iwth further treatment of your highly elevated blood pressure, but you decided to go home. Return immediately if you feel symptoms are worsening or if you wish to have further evaluation of what is going one. Your blood pressure was elevated during this visit. This is quite common in many people who are being evaluated in the Emergency Department for many reasons. However, it is important that you have your Primary Care Provider recheck your blood pressure and discuss whether treatment will be needed. friend of the court elevated blood pressure can lead to strokes, heart attacks, kidney failure amongst other medical issues. If you develop severe headaches, chest pain, weakness in arms or legs, or other concerning symptoms call 911. Problem Qualifiers Additional Impressions: Hypertension Hypertension type: essential hypertension Qualified Codes: I10 - Essential ( primary) hypertension
[2016-10-14 09:46] LABS: BASO % 0.2 %; BASO ABS # 0.02 K/uL (0-0.2); COMPLETE YES; EOS % 0.5 %; HEMATOCRIT 38.7 % (37-47); IG% 0.1 %; LYMPH % 29.2 %; LYMPH ABS # 2.36 K/uL (1.2-3.4); MEAN CORPUSCULAR HEMOGLOBIN 31.3 pg (25-34); MEAN CORPUSCULAR HGB CONC 36.4 g/dl (32-36); MEAN PLATELET VOLUME 9.1 fL (7.4-10.4); MONO % 8.2 %; NEUT % 61.8 %; PLATELET COUNT 252 K/uL (130-400); WHITE BLOOD COUNT 8.09 K/uL (4.8-10.8)
[2016-10-14 10:05] LABS: BUN/CREATININE RATIO 20.5 (10-20); CALCIUM 9.1 mg/dl (8.5-10.1); CREATININE 0.65 mg/dl (0.60-1.20); MAGNESIUM 2.3 mg/dl (1.8-2.4); POTASSIUM 3.1 mmol/L (3.5-5.1)
[2016-10-14 10:17] LABS: URINE APPEARANCE CLEAR (CLEAR); URINE BILIRUBIN NEG (NEG); URINE COLOR YELLOW; URINE EPITHELIAL CELL AUTO 0-5 /lpf (0-5); URINE NITRITE NEG (NEG); URINE SPECIFIC GRAVITY 1.007 (1.000-1.030); UROBILINOGEN NEG (NEG); ZZUR CULT IF INDIC CLEAN CATCH NO
[2016-10-14] MEDS ORDERED: OPTIRAY 320 IV PRN (10:30)
[2016-10-14 10:32] LABS: MANUAL MICROSCOPIC REQUIRED? NO; REVIEW REQ? YES; SULFASALICYLIC ACID POS (NEG)
--- NOTE | 2016-10-14 10:38 | DIAGNOSTIC IMAGING REPORT ---
ABDOMEN AND PELVIS CT WITH IV CONTRAST CT DOSE: 583.49 mGy.cm HISTORY: diffuse lower abdominal pain, worsening over 2 weeks TECHNIQUE: Multiaxial CT images of the abdomen and pelvis were performed following the use of intravenous contrast. COMPARISON STUDY: Abdomen and pelvis CT 10/27/2014. FINDINGS: The lung bases are essentially clear. Tiny fat-containing umbilical hernia. The liver, gallbladder, pancreas, spleen, and adrenal glands are unremarkable. Bilateral renal hypodense lesions are not significantly changed. These favor cysts. Mild fullness within the bilateral renal collecting systems without samara hydronephrosis. This is also similar to the prior study. No retroperitoneal lymphadenopathy. The bladder is moderately distended. The uterus is surgically absent. No pelvic free fluid. No bowel wall thickening or obstruction. Colonic diverticulosis. Questionable thickening at the descending colon is likely due to underdistention. This is similar to the prior study. No pericolonic inflammatory change to suggest an acute process. IMPRESSION: 1. No significant change compared to the prior study. 2. No definite bowel wall thickening or obstruction. 3. Colonic diverticulosis. 4. Normal appendix. 5. Fullness within the bilateral renal collecting systems is likely due to the moderately distended bladder. No hydronephrosis or renal stones. Electronically signed by: Saul Teixeira M.D. 10/14/2016 10:36 AM Dictated Date/Time: 10/14/2016 10:28 AM
[2016-10-14] MEDS ORDERED: HydrALAZINE HCL 20 MG/ML VIAL IV. STA (10:51)
[2016-10-14 12:04] VITALS: BP 185/70; PULSE 77; O2SAT 94
== END 2016-10-14 12:05 | disposition home or self-care (01) ==
LOC: C.EDB 08:58
DX: R10.30 Lower abdominal pain, unspecified (principal); I10 Essential (primary) hypertension; E87.1 Hypo-osmolality and hyponatremia; F41.9 Anxiety disorder, unspecified; Z87.19 Personal history of other diseases of the digestive system; Z79.82 Long term (current) use of aspirin; Z79.899 Other long term (current) drug therapy; Z90.710 Acquired absence of both cervix and uterus; Z88.1 Allergy status to other antibiotic agents; Z88.2 Allergy status to sulfonamides; Z88.5 Allergy status to narcotic agent; Z88.8 Allergy status to other drugs, medicaments and biological substances; Z83.79 Family history of other diseases of the digestive system; Z82.49 Family history of ischemic heart disease and other diseases of the circulatory system

== ENCOUNTER 2016-10-29 10:52 | Emergency (ER) | payer OTHER, BC ==
[~2016-10-29] VITALS: Ht 165.1 cm; Wt 75.2 kg
[2016-10-29 11:05] VITALS: TEMP 36.3; Ht 165.1 cm; Wt 75.2 kg
[2016-10-29] MEDS ORDERED: LORAZEPAM 2 MG/ML 1 ML VIAL IV STA (11:23)
[2016-10-29 11:44] VITALS: O2SAT 97
[2016-10-29 11:50] LABS: BASO % 0.4 %; BASO ABS # 0.04 K/uL (0-0.2); COMPLETE YES; EOS % 0.4 %; IG% 0.3 %; LYMPH % 25.2 %; LYMPH ABS # 2.52 K/uL (1.2-3.4); MEAN CELL VOLUME 86.4 fL (80-100); MEAN CORPUSCULAR HEMOGLOBIN 31.5 pg (25-34); MEAN CORPUSCULAR HGB CONC 36.5 g/dl (32-36); MEAN PLATELET VOLUME 9.3 fL (7.4-10.4); MONO % 6.6 %; NEUT % 67.1 %; PLATELET COUNT 245 K/uL (130-400); RED BLOOD COUNT 4.63 M/uL (4.2-5.4); WHITE BLOOD COUNT 10.01 K/uL (4.8-10.8)
[2016-10-29 12:04] LABS: ALT/SGPT 25 U/L (12-78); AST/SGOT 17 U/L (15-37); BLOOD UREA NITROGEN 11 mg/dl (7-18); BUN/CREATININE RATIO 19.8 (10-20); CARBON DIOXIDE 28 mmol/L (21-32); CHLORIDE 94 mmol/L (98-107); CREATININE 0.56 mg/dl (0.60-1.20); GLUCOSE 114 mg/dl (70-99); MAGNESIUM 2.2 mg/dl (1.8-2.4); POTASSIUM 3.6 mmol/L (3.5-5.1); SODIUM 130 mmol/L (136-145)
[2016-10-29 12:07] LABS: ALKALINE PHOSPHATASE 61 U/L (45-117)
[2016-10-29 12:47] LABS: URINE APPEARANCE CLEAR (CLEAR); URINE BILIRUBIN NEG (NEG); URINE COLOR YELLOW; URINE EPITHELIAL CELL AUTO 0-5 /lpf (0-5); URINE NITRITE NEG (NEG); URINE SPECIFIC GRAVITY 1.009 (1.000-1.030); UROBILINOGEN NEG (NEG)
[2016-10-29 12:54] LABS: MANUAL MICROSCOPIC REQUIRED? NO; REVIEW REQ? NO
[2016-10-29 14:11] VITALS: BP 218/97; PULSE 82; O2SAT 97
--- NOTE | 2016-10-29 17:07 | EMERGENCY ROOM VISIT NOTE ---
History Report prepared by Delmy: Jodi Scott Under the Supervision of: Dr. Trey Eng M.D. First contact with patient: 11:12 Chief Complaint: URINARY SYMPTOMS Stated Complaint: URINE PROBLEMS History of Present Illness The patient is a 86 year old female who presents to the Emergency Room with complaints of an episode of burning when urinating starting this morning. She states that she woke up seven hours ago and couldn't urinate. She reports that she drank hot tea and was able to urinate after that. She states that once she was able to urinate, she had a burning feeling. She states that she is experiencing burning her vagina just sitting on the bed. She states that she feels that she has something in her vagina. She reports that she has had three ED visits recently. The patient notes that she has not been taking her blood pressure. Her daughter reports that she has high anxiety and her is in a home. She states that her mother is very worried about him and she gets worked up when he calls. Her daughter also reports that she saw that one of her friends had this morning in the newspapers obituary. The patient states that she has had a partial hysterectomy. The patient complains of pain in her left breast. Pt denies LOC, headache, fevers, chills, diaphoresis, visual changes, neck pain, chest pain, breathing difficulties, nausea, vomiting , abdominal pain, back pain, melena, hematochezia, numbness, weakness, lymphadenopathy, rash, or other complaints. Source of History: patient Onset: this morning Position: other (global) Quality: other (global) Timing: other (episode) Associated Symptoms: + urinary symptoms Note: The patient reports a burning in her vagina and pain in her left breast. Review of Systems See HPI for pertinent positives and negatives. A total of ten systems were reviewed and were otherwise negative. Past Medical & Surgical Medical Problems: (1) Anxiety (2) Hypertension (3) Ulcer Surgical Problems: (1) S/P partial hysterectomy Family History FH: gallbladder disease Hypertension Social History Smoking Status: Never Smoker Alcohol Use: none Drug Use: none Marital Status: Housing Status: lives alone Occupation Status: retired Current/Historical Medications Scheduled Aspirin (Aspirin Ec), 81 MG PO HS B-Complex Vitamins (Vitamin B Complex), 1 TAB PO DAILY Calcium Carbonate (Calcium), 600 MG PO DAILY Cholecalciferol (Vitamin D3), 1,000 UNITS PO DAILY Cyanocobalamin (Vitamin B-12), 100 MCG PO DAILY Fish Oil (Drury-3), 2 CAP PO DAILY Multiple Vitamins W/ Minerals (Hair/Skin/Nails), 1 TAB PO DAILY Ocuvite Preservision (Ocuvite Preservision), 1 TAB PO BID Ranitidine (Zantac), 150 MG PO BID Sennosides-Docusate Sodium (Senna Plus), 1 TAB PO BID Triamterene/Hctz (Dyazide 37.5MG/25MG), 1 TAB PO DAILY Verapamil Hcl (Verapamil Hcl Er), 180 MG PO DAILY Scheduled PRN Acetaminophen (Tylenol), 1,000 MG PO TID PRN for Pain Alprazolam (Xanax), 0.25 MG PO TID PRN for Anxiety/Agitation Allergies Coded Allergies: CI Pigment Blue 63 (Verified Allergy, Unknown, UNKNOWN, 10/29/16) Codeine (Verified Allergy, Unknown, 10/29/16) Escitalopram (Verified Allergy, Unknown, ., 10/29/16) Labetalol (Unverified Allergy, Unknown, UNKNOWN, 10/29/16) Meperidine (Verified Allergy, Unknown, 10/29/16) Nebivolol (Verified Allergy, Unknown, UNKNOWN, 10/29/16) Nitrofurantoin (Unverified Allergy, Unknown, UNKNOWN, 10/29/16) Ramipril (Verified Allergy, Unknown, UNKNOWN, 10/29/16) Sorbitan (Verified Allergy, Unknown, UNKNOWN, 10/29/16) Spironolactone (Unverified Allergy, Unknown, UNKNOWN, 10/29/16) Sulfa Drugs (Verified Allergy, Unknown, 10/29/16) Yellow Dye (Verified Allergy, Unknown, UNKNOWN, 10/29/16) Ciprofloxacin (Unverified Adverse Reaction, Severe, CONSTIPATION, 10/29/16) Amoxicillin (Unverified Adverse Reaction, Intermediate, CONSTIPATION, 10/29) Clonidine (Verified Adverse Reaction, Unknown, UNKNOWN, 10/29/16) PT Morphine (Verified Adverse Reaction, Unknown, NEVER HAD, BUT "I NEVER WANT IT", 10/29/16) Sertraline (Unverified Adverse Reaction, Unknown, HYPERTENSION, 10/29/16) Venlafaxine (Unverified Adverse Reaction, Unknown, CAUSES CONSTIPATION, ) Physical Exam Vital Signs Date Time Temp Pulse Resp B/P Pulse Ox O2 Delivery O2 Flow Rate FiO2 10/29/16 14:11 82 18 218/97 97 10/29/16 11:49 81 10/29/16 11:44 97 Room Air 10/29/16 11:05 36.3 82 20 235/99 96 Room Air Physical Exam GENERAL: Awake, alert, well-appearing, in no distress. Very anxious appearing. HENT: Normocephalic, atraumatic. Oropharynx unremarkable. EYES: Normal conjunctiva. Sclera non-icteric. NECK: Supple. No nuchal rigidity. FROM. No JVD. RESPIRATORY: Clear to auscultation. CARDIAC: Regular rate, normal rhythm. Extremities warm and well perfused. Pulses equal. ABDOMEN: Soft, non-distended. No tenderness to palpation. No rebound or guarding. No masses. RECTAL: Deferred. MUSCULOSKELETAL: Chest examination reveals no tenderness. The back is symmetrical on inspection without obvious abnormality. There is no CVA tenderness to palpation. No joint edema. LOWER EXTREMITIES: Calves are equal size bilaterally and non-tender. No edema. No discoloration. NEURO: Normal sensorium. No sensory or motor deficits noted. SKIN: No rash or jaundice noted. Medical Decision & Procedures Laboratory Results 10/29/16 11:38 Red Blood Count 4.63, Mean Corpuscular Volume 86.4, Mean Corpuscular Hemoglobin 31.5, Mean Corpuscular Hemoglobin Concent 36.5, Mean Platelet Volume 9.3, Neutrophils (%) (Auto) 67.1, Lymphocytes (%) (Auto) 25.2, Monocytes (%) (Auto) 6.6, Eosinophils (%) (Auto) 0.4, Basophils (%) (Auto) 0.4, Neutrophils # (Auto) 6.72, Lymphocytes # (Auto) 2.52, Monocytes # (Auto) 0.66, Eosinophils # (Auto) 0.04, Basophils # (Auto) 0.04 10/29/16 11:38 Test 10/29/16 11:38 10/29/16 12:25 White Blood Count 10.01 K/uL (4.8-10.8) Red Blood Count 4.63 M/uL (4.2-5.4) Hemoglobin 14.6 g/dL (12.0-16.0) Hematocrit 40.0 % (37-47) Mean Corpuscular Volume 86.4 fL (80-100) Mean Corpuscular Hemoglobin 31.5 pg (25-34) Mean Corpuscular Hemoglobin Concent 36.5 g/dl (32-36) Platelet Count 245 K/uL (130-400) Mean Platelet Volume 9.3 fL (7.4-10.4) Neutrophils (%) (Auto) 67.1 % Lymphocytes (%) (Auto) 25.2 % Monocytes (%) (Auto) 6.6 % Eosinophils (%) (Auto) 0.4 % Basophils (%) (Auto) 0.4 % Neutrophils # (Auto) 6.72 K/uL (1.4-6.5) Lymphocytes # (Auto) 2.52 K/uL (1.2-3.4) Monocytes # (Auto) 0.66 K/uL (0.11-0.59) Eosinophils # (Auto) 0.04 K/uL (0-0.5) Basophils # (Auto) 0.04 K/uL (0-0.2) RDW Standard Deviation 37.6 fL (36.4-46.3) RDW Coefficient of Variation 11.9 % (11.5-14.5) Immature Granulocyte % (Auto) 0.3 % Immature Granulocyte # (Auto) 0.03 K/uL (0.00-0.02) Anion Gap 8.0 mmol/L (3-11) Est Creatinine Clear Calc Drug Dose 71.8 ml/min Estimated GFR () 97.2 Estimated GFR (Non- 83.8 BUN/Creatinine Ratio 19.8 (10-20) Calcium Level 9.0 mg/dl (8.5-10.1) Magnesium Level 2.2 mg/dl (1.8-2.4) Total Bilirubin 0.5 mg/dl (0.2-1) Direct Bilirubin < 0.1 mg/dl (0-0.2) Aspartate Amino Transf (AST/SGOT) 17 U/L (15-37) Alanine Aminotransferase (ALT/SGPT) 25 U/L (12-78) Alkaline Phosphatase 61 U/L (45-117) Total Protein 8.9 gm/dl (6.4-8.2) Albumin 4.2 gm/dl (3.4-5.0) Lipase 170 U/L (73-393) Urine Color YELLOW Urine Appearance CLEAR (CLEAR) Urine pH 7.0 (4.5-7.5) Urine Specific [place] 1.009 (1.000-1.030) Urine Protein 2+ (NEG) Urine Glucose (UA) NEG (NEG) Urine Ketones NEG (NEG) Urine Occult Blood NEG (NEG) Urine Nitrite NEG (NEG) Urine Bilirubin NEG (NEG) Urine Urobilinogen NEG (NEG) Urine Leukocyte Esterase NEG (NEG) Urine WBC (Auto) 0 /hpf (0-5) Urine RBC (Auto) 0-4 /hpf (0-4) Urine Hyaline Casts (Auto) 0 /lpf (0-5) Urine Epithelial Cells (Auto) 0-5 /lpf (0-5) Urine Bacteria (Auto) NEG (NEG) Laboratory results reviewed by me Medications Administered Medications (Trade) Dose Ordered Sig/Cristhian Route Start Time Stop Time Status Last Admin Dose Admin Lorazepam (Ativan Inj) 0.5 mg NOW STAT IV 10/29/16 11:23 10/29/16 11:27 DC 10/29/16 11:41 0.5 MG Procedure Pelvic Exam: normal external anatomy, minimal vaginal irritation, appreciated atrophic mucosa, no prolapse, no foreign bodies, no pain with examination Breast Exam: left breast was examined. No masses, drainage, or discharge. Skin was normal and nontender. ED Course 1118: The patient was evaluated in room B12. A complete history and physical exam was performed. 1123: Ordered Ativan Inj 0.5 mg IV. 1215: I talked to the patient's family. The stated that she gets worked up all the time and tries to convince them to bring her to the ED all the time. 1336: Case management talked to the family and gave them resources. They will follow up on Sunday. 1404: I reevaluated the patient. Discussed results and discharge instructions: She verbalized understanding and agreement. The patient is ready for discharge. Medical Decision Triage Nursing notes reviewed. The patient's presentation and history were concerning for urinary symptoms and anxiety. Etiologies such as UTI, anxiety, vaginitis, prolapse, interstitial cystitis, appendicitis, diverticulitis, obstruction, inflammatory bowel disease, renal colic, PUD, biliary pathology, pancreatitis, mesenteric ischemia, infections, genitourinary, perforated viscus, as well as others were entertained. The patient was evaluated. She was quite anxious. She admitted to having anxiety. She is very stressed out about her 's situation. She notes feeling much better after receiving Ativan last time she was here. The patient had an IV established. Admit with family as well. She was given IV Ativan which helped. The patient had an unremarkable CBC, cath urinalysis, chemistry panel, magnesium, LFTs, and lipase. The only abnormality was her sodium was mildly low. This seems to be a chronic issue for her. Her physical examination revealed some atrophy of the vaginal mucosa but no significant vaginitis. No discharge or prolapse. Breast examination did not show any masses. I discussed having her follow-up closely as an outpatient with her GEOLOGICAL SAMPLE TESTER and discuss a mammogram with her primary physician. The patient has no indication for antibiotics at this time. She is on Xanax at home. She is significantly hypertensive but better than prior visits. The patient has a problem with taking the medications and her primary physician has tried doses. Most recently she was started on hydralazine but the patient took one dose and felt ill and stopped taking this. The patient was counseled and needs to follow closely with her primary office for blood pressure management. The patient had a consultation with case management. The family met with case management. By the evaluation outlined above other emergent etiologies such as those listed in the differential, as well as others, were deemed relatively unlikely. The patient and family were informed about the findings as listed above. All questions were answered and they were pleased with the treatment. Return instructions were outlined and the patient was discharged in stable condition. The patient was referred to her PCP and GEOLOGICAL SAMPLE TESTER for follow-up for a recheck of the current condition. The chart was completed utilizing [employer] Speech voice recognition software. Grammatical errors, random word insertions, pronoun errors, and incomplete sentences are an occasional consequence of this system due to software limitations, ambient noise, and hardware issues. Any formal questions or concerns about the content, text, or information contained within the body of this dictation should be directly addressed to the physician for clarification. Impression Primary Impression: Dysuria Additional Impression: Mastodynia of left breast Scribe Attestation The scribe's documentation has been prepared under my direction and personally reviewed by me in its entirety. I confirm that the note above accurately reflects all work, treatment, procedures, and medical decision making performed by me. Departure Information Dispostion Home / Self-Care Referrals Dieudonne Saba M.D. (PCP) Forms HOME CARE DOCUMENTATION FORM, IMPORTANT VISIT INFORMATION Patient Instructions [facility] Additional Instructions Follow-up with her electronics test engineer next week. Discuss a mammogram of the left breast with your primary doctor. Return to the ER for worsening urinary issues, abdominal pain, vomiting, fevers , bloody stools, or as needed. Continue current medications. Rest and drink plenty of fluids. Increase sodium in your diet. Problem Qualifiers
== END 2016-10-29 14:14 | disposition home or self-care (01) ==
LOC: C.EDB 10:54
DX: R30.0 Dysuria (principal); N64.4 Mastodynia; I10 Essential (primary) hypertension; F41.9 Anxiety disorder, unspecified; Z90.710 Acquired absence of both cervix and uterus; Z79.82 Long term (current) use of aspirin; Z79.899 Other long term (current) drug therapy; Z88.1 Allergy status to other antibiotic agents; Z88.2 Allergy status to sulfonamides; Z88.5 Allergy status to narcotic agent; Z88.8 Allergy status to other drugs, medicaments and biological substances; Z83.79 Family history of other diseases of the digestive system; Z82.49 Family history of ischemic heart disease and other diseases of the circulatory system